=== PATIENT | female | born 1990 | race African-American/Black ===

== ENCOUNTER 2019-02-15 16:01 | Emergency (ER) | payer OTHER ==
[2019-02-15 16:13] VITALS: BP 127/68; PULSE 65; TEMP 99.9; BMI 29.0
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
== END 2019-02-15 16:48 | disposition home or self-care (01) ==
LOC: JERFT 16:01
DX: S39.82XA Other specified injuries of lower back, initial encounter (principal); V59.59XA Passenger in pick-up truck or van injured in collision with other motor vehicles in traffic accident, initial encounter; Y92.414 Local residential or business street as the place of occurrence of the external cause; Y93.89 Activity, other specified; Y99.8 Other external cause status
CPT/HCPCS: 99281-25